=== PATIENT | female | born 1960 | race Caucasian/White ===

== ENCOUNTER 2017-02-17 08:28 | Day surgery (SDC) | payer MEDICAID, OTHER ==
[2017-02-17] MEDS ORDERED: LIDOCAINE 1% 5 ML SDV ID PRN (09:15)
[2017-02-17] MEDS ORDERED: LR 1,000 ML IV ONE (09:15)
[2017-02-17] MEDS ORDERED: LIDOCAINE 1% 2 ML INJ ONE (09:18)
[2017-02-17] MEDS ORDERED: MIDAZOLAM 2 MG/2 ML VIAL ONE (09:32)
[2017-02-17] MEDS ORDERED: PROPOFOL/EMULSION 500 MG/50 ML BOTTLE IV ONE (09:32)
[2017-02-17] MEDS ORDERED: LIDOCAINE 2% 5 ML SDV ONE (09:32)
--- NOTE | 2017-02-17 10:35 | GPN ---
[f rep st] PROCEDURE NOTE PREPROCEDURE DIAGNOSIS: Screening colonoscopy. POSTPROCEDURE DIAGNOSIS: Small sigmoid colon polyp removed. PROCEDURE: Colonoscopy with biopsy. MEDICATIONS: Monitored anesthesia care. INDICATIONS: The patient is a 56-year-old female who presents for a screening colonoscopy. She has no family history of colon cancer or colon polyps. She is ASA class 2. The risks and the benefits of the procedure were discussed with the patient and consent obtained. The risks include, but not limited to, bleeding, perforation, and risks associated with sedation. DESCRIPTION OF PROCEDURE: The end-viewing endoscope was inserted into the terminal ileum, which clyde ears normal. The appendiceal orifice, cecum, ascending colon, hepatic flexure, transverse colon, sp lenic flexure, and descending colon appear normal. There is a 2 mm polyp in the sigmoid colon that was removed using cold biopsy forceps and sent off to pathology. The rectum is normal. Retroflexed views in the rectum were normal. IMPRESSION: 2 mm polyp removed from the sigmoid colon, otherwise normal colonoscopy. RECOMMENDATION: 1. Discharge to home with escort. 2. Advance diet as tolerated. 3. Follow up on the final pathology results. Results available within 10 days. 4. Repeat colonoscopy based on pathology. If the polyp is found to be adenomatous, repeat colonosc opy in 5 years is recommended. Otherwise, repeat colonoscopy in 10 years is recommended. Thank you for allowing me to participate in the care of your patient. Please do not hesitate to reji thalia with questions. /[id number]/MODL
== END 2017-02-17 10:55 | disposition home or self-care (01) ==
LOC: FSGY 08:28
PROVIDERS: ATTEND Internal Medicine Gastroenterology
PROC: 0DBN8ZX Excision of Sigmoid Colon, Via Natural or Artificial Opening Endoscopic, Diagnostic (ICD-10-PCS; principal; 2017-02-17 09:45)
DX: Z12.11 Encounter for screening for malignant neoplasm of colon (principal); K63.5 Polyp of colon; F32.9 Major depressive disorder, single episode, unspecified; F43.10 Post-traumatic stress disorder, unspecified
CPT/HCPCS: J2250; J2704

== ENCOUNTER → 2017-06-22 | Outpatient (CLI) | payer MEDICAID | LOC: CIMAGING 14:49 | PROVIDERS: ATTEND Physician Assistant Medical | DX: J40 Bronchitis, not specified as acute or chronic (principal) | CPT/HCPCS: 71020-PO ==